=== PATIENT | female | born 1955 | race Caucasian/White ===

== ENCOUNTER → 2020-08-26 15:11 | Outpatient (CLI) | payer OTHER, SELFPAY ==
[2020-08-28 16:08] LABS: Endomysial Antibody IgA Negative (Negative)
[2020-08-28 21:23] LABS: Immunoglobulin A 208 mg/dL (87-352)
[2020-08-28 21:24] LABS: t-Transglutaminase IgA <2 U/mL (0-3)
== END ==
PROVIDERS: PCP Nurse Practitioner Family; Referring Provider Internal Medicine Gastroenterology; Visit Provider Internal Medicine Gastroenterology
DX: R19.7 Diarrhea, unspecified (principal)
CPT/HCPCS: 36415; 82784; 83516; 86140; 86255

== ENCOUNTER → 2025-03-19 | Outpatient (CLI) | payer MEDICARE, OTHER, SELFPAY ==
--- NOTE | 2025-03-19 11:00 | STRESSREP ---
Stress Test Report Date: 03/19/2025 Procedure: Exercise tolerance test Indications: Dyspnea Consent: Per the patient Procedure: The patient exercised on a Brian protocol for 3 minutes and 5 seconds achieving a peak heart rate of 129 bpm (84% predicted maximal heart rate) with a peak blood pressure 224/86 mmHg and a peak MET capacity of approximately 4.7 MET's. The baseline ECG demonstrated sinus rhythm. The peak exercise ECG showed sinus tachycardia. No ischemic changes noted with exercise or in recovery. There were no cardiac dysrhythmias pretest, during exercise, or recovery. The functional capacity was considered suboptimal. The patient had no complaints of chest discomfort during exercise or recovery. The examination was discontinued secondary to fatigue and dyspnea. Impression: 1. Technically adequate exercise tolerance test with 84% of maximal predicted heart rate achieved. Functional capacity suboptimal 2. Peak exercise ECG with no ischemic changes 3. There were no cardiac dysrhythmias during exercise or recovery. Markedly hypertensive response to exercise This note was generated with [employer] software. It may contain incorrect words, spelling, and punctuation that were not noted in checking the note before signing.
== END | disposition home or self-care (01) ==
LOC: CVS 08:57
PROVIDERS: PCP Nurse Practitioner Family; Referring Provider Internal Medicine Cardiovascular Disease; Visit Provider Internal Medicine Cardiovascular Disease
DX: I11.0 Hypertensive heart disease with heart failure (principal); I50.32 Chronic diastolic (congestive) heart failure; I27.20 Pulmonary hypertension, unspecified; E78.5 Hyperlipidemia, unspecified; R73.03 Prediabetes; E66.9 Obesity, unspecified; G47.33 Obstructive sleep apnea (adult) (pediatric); Z82.49 Family history of ischemic heart disease and other diseases of the circulatory system
CPT/HCPCS: 93017